=== PATIENT | female | born 1975 | race African-American/Black ===

== ENCOUNTER 2019-08-04 07:35 | Outpatient (CLI) | payer BC ==
[2019-08-04] MEDS ORDERED: Iopamidol 300 61% 100 ML VIAL FS ONE (09:00)
--- NOTE | 2019-08-04 09:56 | CT ---
CT ABDOMEN AND PELVIS WITH AND WITHOUT IV CONTRAST 08/04/2019 CLINICAL INFORMATION: History of kidney stones. Microhematuria for 3 months. COMPARISON: None. Technique: Multiple contiguous axial CT images are obtained through the abdomen and pelvis with IV contrast. Cor onal reformatted images are provided. FINDINGS: Lower Chest: within normal limits. Vessels: Abdominal aorta is normal in caliber. Abdomen: Portal vein:Not well opacified on this exam. Gallbladder: Within normal limits for CT imaging. Liver: Within normal limits for phase of imaging. Spleen: Within normal limits for phase of imaging. Pancreas: Within normal limits for phase of imaging. Adrenals: Within normal limits for phase of imaging. Kidneys: There is a superior pole right renal calculus measuring approximately 10 mm with resultant d ilatation of a superior pole right renal calyx. No additional renal calculi are seen bilaterally. There is no evidence of a ureteral calculus. The left kidney demonstrates a normal CT appearance. Bowel: Loops of small bowel are normal in caliber. There is a low-density area seen within the ascend ing colon near the region of the ileocecal valve which is likely related to retained liquid fecal material. No bowel wall thickening is seen in this region. Appendix: The appendix is visualized and normal in caliber. Peritoneum: No ascites or free air; no fluid collection. Mesentery and Retroperitoneum: No enlarged mesenteric or retroperitoneal lymph nodes. Abdominal Wall: within normal limits. Pelvis: Reproductive Organs: No pelvic masses. Pelvis within normal limits. Bladder: within normal limits. Bones: Mild degenerative changes are seen in the lumbosacral junction. IMPRESSION: 1. Superior pole right renal calculus measuring approximately 10 mm with dilatation of a superior iliana e renal calyx.
== END 2019-08-04 07:36 | disposition home or self-care (01) ==
LOC: SCSCT 07:35
PROVIDERS: ATTEND Urology
DX: R31.29 Other microscopic hematuria (principal); N20.0 Calculus of kidney; Z87.442 Personal history of urinary calculi
CPT/HCPCS: 74178; Q9967

== ENCOUNTER 2021-01-03 12:48 | Outpatient (CLI) | payer BC | END 2021-01-03 12:49 | disposition home or self-care (01) | LOC: BICMAMMO 12:48 | PROVIDERS: ATTEND Student in an Organized Health Care Education/Training Program | DX: N64.59 Other signs and symptoms in breast (principal); N63.25 Unspecified lump in the left breast, overlapping quadrants; N64.9 Disorder of breast, unspecified | CPT/HCPCS: G0279 ==

== ENCOUNTER → 2021-01-14 | Day surgery (SDC) | payer BC | LOC: BICULT 12:34 | PROVIDERS: ATTEND Student in an Organized Health Care Education/Training Program | PROC: 0H9V0ZX Drainage of Bilateral Breast, Open Approach, Diagnostic (ICD-10-PCS; principal; 2021-01-14) | DX: D49.3 Neoplasm of unspecified behavior of breast (principal) | CPT/HCPCS: 19083; 88305; 88341; 88342 ==